=== PATIENT | female | born 1950 | race Caucasian/White ===

== ENCOUNTER 2018-08-18 09:13 | Emergency (ER) | payer OTHER, MEDICAID ==
[~2018-08-18] VITALS: Ht 160 cm; Wt 72.6 kg
[2018-08-18 09:16] VITALS: Ht 160 cm; Wt 72.6 kg
[2018-08-18 11:16] VITALS: BP 161/88
== END 2018-08-18 11:39 | disposition home or self-care (01) ==
LOC: ED 09:13
DX: M25.462 Effusion, left knee (principal); M23.92 Unspecified internal derangement of left knee; I10 Essential (primary) hypertension; E78.00 Pure hypercholesterolemia, unspecified; Z86.73 Personal history of transient ischemic attack (TIA), and cerebral infarction without residual deficits